=== PATIENT | male | born 1975 | race Caucasian/White ===

== ENCOUNTER 2021-04-05 15:33 | Outpatient (CLI) | payer BC, SELFPAY ==
[2021-04-05 15:48] LABS: Hematocrit 49.1 % (42.0-52.0); Hemoglobin 17.1 g/dL (14.0-18.0); Mean Corpuscular HGB Conc 34.8 g/dl (32-36); Mean Corpuscular Hemoglobin 30.7 pg (26-34); Mean Corpuscular Volume 88.2 fl (80-100); Mean Platelet Volume 9.3 fl (7.4-10.4); Platelet Count Result 217 k/mm3 (150-375); Red Blood Count 5.57 M/mm3 (4.6-6.20); Red Cell Distribution Width 12.7 % (11.5-14.5); White Blood Count 7.9 K/mm3 (4.5-10.0)
[2021-04-05 17:36] LABS: Alanine Aminotransferase 28 U/L (4-50); Albumin Level 4.6 g/dL (3.5-5.1); Alkaline Phosphatase 54 U/L (38-126); Anion Gap 10 mmol/L (8-16); Aspartate Amino Transferase 29 U/L (17-59); Bilirubin,Total 1.3 mg/dL (0.2-1.3); Blood Urea Nitrogen 21 mg/dL (9-20); Calcium 10.1 mg/dL (8.4-10.2); Carbon Dioxide 25 mmol/L (22-30); Chloride 104 mmol/L (98-107); Estimated Glomerular Filt Rate > 60; Glucose 93 mg/dL (65-110); Potassium 4.1 mmol/L (3.4-5.0); Sodium 139 mmol/L (137-145)
[2021-04-05 20:43] LABS: Iron 128 ug/dL (49-181)
[2021-04-05 20:57] LABS: Percent Iron Saturation 36 % (20-50)
== END 2021-04-05 15:34 | disposition home or self-care (01) ==
LOC: ANHLAB 15:38
PROVIDERS: PCP Internal Medicine; Visit Provider Internal Medicine Hematology & Oncology
DX: E83.110 Hereditary hemochromatosis (principal)
CPT/HCPCS: 36415; 80053; 82728; 83540; 83550; 85027

== ENCOUNTER 2022-05-04 01:11 | Day surgery (SDC) | payer BC, SELFPAY ==
[2022-04-24 14:38] VITALS: BMI 36.3
--- NOTE | 2022-05-03 15:24 | PM.HPGS ---
History of Present Illness History of Present Illness Consent: Risks, benefits, and alternatives have been discussed and questions answered. Patient agrees to proceed with procedure. Chief complaint: neoplasm screening Narrative: Anand Tim is a 47 year old male Referred for colon cancer screening Review of Systems Review of Systems: All systems reviewed & are unremarkable except as noted in HPI and below PMFSH Past Medical History Medical History Hereditary hemochromatosis Family History Family History Father Diabetes mellitus type 2 Hypertension Mother Lung cancer Hypertension Social History Social History Social History: 2 cups of coffee daily Smoking status: Never smoker Second hand tobacco smoke exposure: No Alcohol intake: current Drinks per week: 8 Alcohol use details: wine and whiskey Substance use type: does not use Living arrangements: with family Spiritual care concerns: No Meds Home Medications and Allergies Home Medications Medication Instructions Recorded Confirmed Type testosterone cypionate 100 mg/mL 50 mg IM WEEKLY 03/03/21 04/24/22 History intramuscular oil atorvastatin 40 mg tablet 40 mg PO DAILY 04/24/22 04/24/22 History Allergies Allergy/AdvReac Type Severity Reaction Status Date / Time No Known Allergies Allergy Verified 05/04/22 08:18 Exam Const: General: alert Orientation/consciousness: patient oriented x3 Resp: Auscultation: clear to auscultation bilaterally Cardio: Rhythm: regular rhythm GI: GI Palp: Yes Soft to palpation and No Tenderness to palpation present (GI) Neuro: General: patient oriented x3 Assessment and Plan Assessment and plan (1) Colon cancer screening: Code(s): Z12.11 - Encounter for screening for malignant neoplasm of colon Status: Acute Assessment and Plan: Colonoscopy with possible biopsy or polypectomy or cautery or injection of substances.
[2022-05-04 08:19] VITALS: BP 139/91; PULSE 74; RESP 18; TEMP 36.1; O2SAT 97
[2022-05-04] MEDS: LACTATED RINGERS 1,000 ML 150 ML IV CONT (08:30)
--- NOTE | 2022-05-04 08:30 | WPDANESEPPF ---
Anes - Initial Pre Proc Eval Procedure: Operation Date: 05/04/22 09:00 Proposed Procedures p Screening Colonoscopy - Cisco Sinha MD Date/Time: 05/04/22 08:30 Surgeon: Cisco Sinha MD Pre Op Diagnosis: neoplasm screening Patient Data Age: 47 Gender: M Height: 1.8 m Weight: 119.7 kg Last Vital Signs Temp 97.0 F L 05/04/22 08:19 Pulse 74 05/04/22 08:19 Resp 18 05/04/22 08:19 BP 139/91 H 05/04/22 08:19 Pulse Ox 97 05/04/22 08:19 O2 Del Method Room Air 05/04/22 08:19 Allergies Allergy/AdvReac Type Severity Reaction Status Date / Time No Known Allergies Allergy Verified 05/04/22 08:18 Home Medications Medication Instructions Recorded Confirmed Type testosterone cypionate 100 mg/mL 50 mg IM WEEKLY 03/03/21 04/24/22 History intramuscular oil atorvastatin 40 mg tablet 40 mg PO DAILY 04/24/22 04/24/22 History Patient hx anesthesia problems: none Family hx anesthesia problems: none Results Review: All pre-operative results and documents have been reviewed as part of the pre-operative evaluation. [facility] Past Medical History Medical History Hereditary hemochromatosis Family History Family History Father Diabetes mellitus type 2 Hypertension Mother Lung cancer Hypertension Social History Social History Social History: 2 cups of coffee daily Smoking status: Never smoker Second hand tobacco smoke exposure: No Alcohol intake: current Drinks per week: 8 Alcohol use details: wine and whiskey Substance use type: does not use Living arrangements: with family Spiritual care concerns: No Anes - Eval Final PreProcedure Day of Procedure 05/04/22 08:30 Patient weight: obese Heart: regular rate and rhythm Lungs: clear to auscultation Airway: Mallampati scale class II Neurological: alert and oriented Last oral intake: >/= 8 hours ASA classification: II Emergent: no Anesthetic plan: proceed Anesthesia type and monitoring: general GIVS and standard monitoring Results Review: All pre-operative results and documents have been reviewed as part of the pre-operative evaluation. Informed Consent: The patient's anesthetic plan and its attendant risks and benefits were discussed with the patient/family/POA. Questions were solicited and answers provided to the satisfaction of the patient/family/POA.
[2022-05-04 09:27] VITALS: BP 129/70; PULSE 83; RESP 12; O2SAT 91
[2022-05-04 09:37] VITALS: BP 115/78; PULSE 84; RESP 24; O2SAT 95
[2022-05-04 09:47] VITALS: BP 116/77; PULSE 71; RESP 17; O2SAT 96
== END 2022-05-04 09:56 | disposition home or self-care (01) ==
PROVIDERS: PCP Internal Medicine; Visit Provider Internal Medicine Gastroenterology
PROC: 0DJD8ZZ Inspection of Lower Intestinal Tract, Via Natural or Artificial Opening Endoscopic (ICD-10-PCS; CPT 45378; principal; 2022-05-04 09:00)
DX: Z12.11 Encounter for screening for malignant neoplasm of colon (principal); D12.0 Benign neoplasm of cecum; K57.30 Diverticulosis of large intestine without perforation or abscess without bleeding; E83.110 Hereditary hemochromatosis; E66.9 Obesity, unspecified; Z68.36 Body mass index [BMI] 36.0-36.9, adult
CPT/HCPCS: 45380; 88305; J2704; J7120

== ENCOUNTER 2024-03-12 08:07 | Outpatient (CLI) | payer BC, SELFPAY ==
[2024-03-12 08:23] LABS: Basophils Absolute Auto 0.1 K/mm3 (0.0-0.1); Basophils Percent Auto 0.8 % (0.2-1.2); Eosinophils Absolute Auto 0.1 K/mm3 (0-0.3); Eosinophils Percent Auto 1.3 % (0-4.4); Hematocrit 51.4 % (42.0-52.0); Hemoglobin 17.5 g/dL (14.0-18.0); Immature Granulocyte Absolute 0.02 K/mm3 (0.00-0.031); Immature Granulocyte Percent A 0.3 % (0-0.5); Lymphocytes Absolute Auto 1.83 K/mm3 (0.9-3.2); Lymphocytes Percent Auto 29.8 % (18.3-44.2); Mean Corpuscular Hemoglobin 30.8 pg (26-34); Mean Corpuscular Volume 90.3 fl (80-100); Mean Platelet Volume 9.5 fl (7.4-10.4); Monocytes Absolute Auto 0.8 K/mm3 (0.1-0.6); Monocytes Percent Auto 12.2 % (2.6-8.5); Neutrophils Absolute Auto 3.4 K/mm3 (1.3-6.7); Neutrophils Percent Auto 55.6 % (45.5-73.1); Platelet Count Result 198 k/mm3 (150-375); Red Blood Count 5.69 M/mm3 (4.6-6.20); Red Cell Distribution Width 12.4 % (11.5-14.5); White Blood Count 6.2 K/mm3 (4.5-10.0)
[2024-03-12 10:12] LABS: Iron 141 ug/dL (49-181)
[2024-03-12 10:22] LABS: Percent Iron Saturation 39 % (20-50)
== END 2024-03-12 08:08 | disposition home or self-care (01) ==
LOC: ANHLAB 08:08
PROVIDERS: PCP Internal Medicine; Visit Provider Internal Medicine Hematology & Oncology
DX: E83.110 Hereditary hemochromatosis (principal)
CPT/HCPCS: 36415; 83540; 83550; 85025

== ENCOUNTER 2024-11-25 08:15 | Outpatient (CLI) | payer BC, SELFPAY ==
--- OUTSIDE RECORDS SUMMARY | 2024-11-25 08:25 | XMS_ITS | Clinical Summary ---
[facility] Address [address] [place] [address] Care Team Providers Care Fashion Adviser Name Role Phone Sushant Gibson DO Primary Care Provider Allergies No known active allergies Medications atorvastatin (LIPITOR) 40 mg tablet TAKE 1 TABLET BY MOUTH DAILY Active testosterone cypionate (DEPO-TESTOSTE ROCKY) 100 mg/mL Oil Inject 100 mg by intramuscular injection every 7 days. Active Active Problems Problem Noted Date Diagnosed Date Hereditary hemochromatosis 04/05/2021 Erythrocytosis 04/05/2021 Encounters Date Type Department Care Team Description 11/11/2024 External Device Data [facility] ABSTRACTION Provider, Abstract 10/08/2024 External Device Data [facility]STRACTION Provider, Abstract 10/07/2024 External Device Data [facility]STRACTION Provider, Abstract 10/04/2024 External Device Data [facility]STRACTION Provider, Abstract 10/03/2024 External Device Data [facility]STRACTION Provider, Abstract 09/23/2024 External Device Data [facility] ABSTRACTION Provider, Abstract from Last 3 Months Family History Medical History Relation Name Comments Lung Cancer Mother Relation Name Status Comments Brother 1 Alive Brother 2 Alive Daughter Alive Father Mother Son Alive Social History Tobacco Use Types Packs/Day Years Used Date Smoking Tobacco: Never Smokeless Tobacco: Never Tobacco Cessation:Counseling Given: Not Answered Alcohol Use Standard Drinks/Week Comments Yes 0 (1 standard drink = 0.6 oz pur e alcohol) occasional Sex and Gender Information Value Date Recorded Sex Assigned at Not on file Legal Sex Male 1:19 PM CDT Gender Identity Not on file Sexual Orientation Not on file Last Filed Vital Signs Vital Sign Reading Time Taken Comments Blood Pressure 144/88 03/20/2024 3:16 PM CDT Pulse 80 03/20/2024 3:14 PM CDT Temperature 36.7 C (98 F) 03/20/2024 3:14 PM CDT Respiratory Rate 16 03/20/2024 3:14 PM CDT Oxygen Saturation 95% 03/20/2024 3:14 PM CDT Inhaled Oxygen Concentration - - Weight 123.8 kg (273 lb) 03/20/2024 3:14 PM CDT Height 180.3 cm (5' 11 ) 01/31/2022 3:33 PM CDT Body Mass Index 38.08 01/31/2022 3:33 PM CDT Plan of Treatment Upcoming Encounters Date Type Department Care Team (Late st Contact Info) Description 11/28/2024 9:30 AM CDT Office Visit [facility] [address] [facility] [address] [place] [address] Estuardo Acharya MD [address] [facility] [address] [place] [address] Health Maintenance Due Date Last Done Comments Pre-Diabetes and Diabetes Screening 1977 DTAP/TDAP/TD VACCINES (1 - Tdap) 02/09/1996 HEPATITIS B VACCINES (1 of 3 - 19+ 3-dose series) 01/27 COLORECTAL SCREENING 2022 Colorectal Cancer Screening 2022 FIT-DNA Q 3 years 2022 FIT/FOBT Q 1 year 2022 Flex Sig/CT Colonography Q 5 years 2022 INFLUENZA VACCINE (#1) 2024 Preventative Visit- Commercial 07/30/2024 Insurance [facility] PREFERRED Care Teams Fashion Adviser Relationship Specialty Start Date End Date Sushant Gibson DO [address] [address] PCP - General Internal Medicine 04/05/21
--- OUTSIDE RECORDS SUMMARY | 2024-11-25 08:25 | XMS_ITS | Clinical Summary ---
Author Organization [facility] Address [address] [place] [address] Care Team Providers Care Head Paper Tester Name Role Phone Unavailable Primary Care Provider Unavailabl e Social History Tobacco Use Types Packs/Day Years Used Date Smoking Tobacco: Never Assessed Sex and Gender Information Value Date Recorded Sex Assigned at Not on file Legal Sex Male 6:59 PM CDT Gender Identity Not on file Sexual Orientation Not on file Last Filed Vital Signs Vital Sign Reading Time Taken Comments Blood Pressure 120/68 02/10/2015 8:57 AM CDT Pulse 84 02/10/2015 8:57 AM CDT Temperature - - Respiratory Rate - - Oxygen Saturation - - Inhaled Oxygen Concentration - - Weight 122 kg (269 lb) 02/10/2015 8:57 AM CDT Height 179.1 cm (5' 10.5 ) 02/10/2015 8:57 AM CD T Body Mass Index 38.05 02/10/2015 8:57 AM CDT Plan of Treatment Health Maintenance Due Date Last Done Comments Colorectal Cancer Screening Colonoscopy (10 Years) 1977 Annual Physical 02/09/1980 Hepatitis C 1995 DTaP, Tdap and Td Vaccines ( 1 - Tdap) 02/09/1996 Hepatitis B Vaccines (1 of 3 - 19+ 3-dose series) 02/09/1996 COVID-19 Vaccine (2023-2 5 season) 2024 Meningococcal B Vaccine Aged Out No l onger eligible based on patient's age to complete this topic Meningococcal Vaccine Aged Out No mariluz brain eligible based on patient's age to complete this topic Pneumococcal Vaccine: Pediat rics (0 to 5 Years) and At-Risk Patients (6 to 49 Years) Aged Out No longer eligible b ased on patient's age to complete this topic RSV Immunizations Under 20 Months Aged Out No longer eligible based on patient's age to complete this topic
[2024-11-25 08:28] LABS: Basophils Absolute Auto 0.1 K/mm3 (0.0-0.1); Eosinophils Percent Auto 0.5 % (0-4.4); Hematocrit 48.4 % (42.0-52.0); Hemoglobin 16.7 g/dL (14.0-18.0); Immature Granulocyte Absolute 0.01 K/mm3 (0.00-0.031); Immature Granulocyte Percent A 0.2 % (0-0.5); Lymphocytes Absolute Auto 1.72 K/mm3 (0.9-3.2); Lymphocytes Percent Auto 29.6 % (18.3-44.2); Mean Corpuscular HGB Conc 34.5 g/dl (32-36); Mean Corpuscular Hemoglobin 30.9 pg (26-34); Mean Corpuscular Volume 89.5 fl (80-100); Mean Platelet Volume 9.6 fl (7.4-10.4); Monocytes Absolute Auto 0.6 K/mm3 (0.1-0.6); Monocytes Percent Auto 10.3 % (2.6-8.5); Neutrophils Absolute Auto 3.4 K/mm3 (1.3-6.7); Neutrophils Percent Auto 58.4 % (45.5-73.1); Platelet Count Result 239 k/mm3 (150-375); Red Blood Count 5.41 M/mm3 (4.6-6.20); Red Cell Distribution Width 12.1 % (11.5-14.5); White Blood Count 5.8 K/mm3 (4.5-10.0)
[2024-11-25 11:45] LABS: Iron 122 ug/dL (49-181)
[2024-11-25 11:56] LABS: Percent Iron Saturation 27 % (20-50)
== END 2024-11-25 08:16 | disposition home or self-care (01) ==
LOC: ANHLAB 08:16
PROVIDERS: PCP Internal Medicine; Visit Provider Internal Medicine Hematology & Oncology
DX: E83.110 Hereditary hemochromatosis (principal)
CPT/HCPCS: 36415; 82728; 83540; 83550; 85025

== ENCOUNTER 2025-05-28 10:44 | Outpatient (CLI) | payer BC, SELFPAY ==
[2025-05-28 11:11] LABS: Hematocrit 51.1 % (42.0-52.0); Hemoglobin 16.8 g/dL (14.0-18.0); Mean Corpuscular HGB Conc 32.9 g/dl (32-36); Mean Corpuscular Hemoglobin 28.9 pg (26-34); Mean Corpuscular Volume 88.0 fl (80-100); Platelet Count Result 239 k/mm3 (150-375); Red Blood Count 5.81 M/mm3 (4.6-6.20); White Blood Count 8.8 K/mm3 (4.5-10.0)
--- OUTSIDE RECORDS SUMMARY | 2025-05-28 11:50 | XMS_ITS | Clinical Summary ---
Author Organization [facility] Address [address] [place] [address] Care Team Providers Care Financing Analyst Name Role Phone Sushant Gibson DO Primary Care Provider Allergies No known active allergies Medications atorvastatin (LIPITOR) 40 mg tablet TAKE 1 TABLET BY MOUTH DAILY Active testosterone cypionate (DEPO-TESTOSTE ROCKY) 100 mg/mL Oil Inject 100 mg by intramuscular injection every 7 days. Active Active Problems Problem Noted Date Diagnosed Date Hereditary hemochromatosis 04/05/2021 Erythrocytosis 04/05/2021 Family History Medical History Relation Name Comments [...] Sign Reading Time Taken Comments Blood Pressure 156/98 11/28/2024 9:19 AM CDT Pulse 77 11/28/2024 9:17 AM CDT Temperature 36.3 C (97.4 F) 11/28/2024 9:17 AM CDT Respiratory Rate 16 11/28/2024 9:17 AM CDT Oxygen Saturation 96% 11/28/2024 9:17 AM CDT Inhaled Oxygen Concentration - - Weight 124.2 kg (273 lb 12.8 oz) 11/28/2024 9:17 AM CDT Height 180.3 cm (5' 11) 01/31/2022 3:33 PM CDT Body Mass Index 38.19 01/31/2022 3:33 PM CDT Plan of Treatment Upcoming Encounters Date Type Department Care Team (Late st Contact Info) Description 06/01/2025 11:45 AM SERICULTURIST Office Visit [facility] Oncology and Hematology - [place] [address] [facility] [address] [place] [address] Estuardo Acharya MD [address] [facility] [address] [place] [address] Health Maintenance Due Date Last Done Comments Pre-Diabetes and Diabetes Screening 1977 DTAP/TDAP/TD VACCINES (1 - Tdap) 02/09/1996 HEPATITIS B VACCINES (1 of 3 - 19+ 3-dose series) 01/27 COLORECTAL SCREENING 2022 Colorectal Cancer Screening 2022 FIT-DNA Q 3 years 2022 FIT/FOBT Q 1 year 2022 Flex Sig/CT Colonography Q 5 years 2022 Preventative Visit- Commercial 07/30/2024 INFLUENZA VACCINE (#1) 2025 Insurance [facility] PREFERRED Care Teams Financing Analyst Relationship Specialty Start Date End Date Sushant Gibson DO [address] [facility] [address] [place] [address] PCP - General Internal Medicine 04/05/21
[2025-05-28 16:34] LABS: Iron 85 ug/dL (49-181)
[2025-05-28 16:45] LABS: Percent Iron Saturation 18 % (20-50)
[2025-05-28 17:17] LABS: Ferritin 15.00 ng/mL (17.9-464)
== END 2025-05-28 10:45 | disposition home or self-care (01) ==
LOC: ANHLAB 10:45
PROVIDERS: PCP Internal Medicine; Visit Provider Internal Medicine Hematology & Oncology
DX: E83.110 Hereditary hemochromatosis (principal)
CPT/HCPCS: 36415; 82728; 83540; 83550; 85027